=== PATIENT | female | born 1990 | race African-American/Black ===

== ENCOUNTER 2019-04-26 08:47 | Emergency (ER) | payer OTHER, MEDICAID ==
[~2019-04-26] VITALS: Ht 165.1 cm; Wt 79.0 kg
[2019-04-26] MEDS ORDERED: ACETAMINOPHEN 325MG TABLET PO ONE (09:30)
[2019-04-26] MEDS ORDERED: FAMOTIDINE 20MG TABLET PO ONE (09:30)
[2019-04-26 10:30] VITALS: BP 107/70
== END 2019-04-26 10:32 | disposition home or self-care (01) ==
LOC: ER 08:47
DX: R07.89 Other chest pain (principal); R51 Headache
CPT/HCPCS: 71045; 81025; 93005; 99283